=== PATIENT | female | born 1955 | race Caucasian/White ===

== ENCOUNTER 2019-08-20 15:59 | Emergency (ER) | payer BC ==
[2019-08-20 16:13] VITALS: BP 158/94; TEMP 98.4; BMI 35.5
--- NOTE | 2019-08-20 17:56 | PDOC ---
Documentation entered by Latonia Eden SCRIBE, acting as scribe for Vicente Woods MD. Vicente Woods MD: This documentation has been prepared by the Meek hernandez Aiswarya, SCRIBE, under my direction and personally reviewed by me in its entirety. I confirm that the documentation accurately reflects all work, treatment, procedures, and medical decision making performed by me. History of Present Illness - General Chief Complaint: Wound Stated Complaint: LESION TO THE BACK Time Seen by Provider: 08/20/19 16:12 History Source: Patient Exam Limitations: No Limitations - History of Present Illness Initial Comments: 08/20/19 16:51 The patient is a 64 year old female, with no significant PMH, who presents to the emergency department with a mass to the upper back, unsure when it first began. Patient states she felt the mass pop and started oozing while taking a shower today. Mass is located to the right upper back that is hyperpigmented and fungated in nature with areas of dried blood. The patient states she made an appointment with a electronic gluing machine operator to be seen later this week. The patient denies any pain, tingling or numbness. Denies any chest pain, shortness of breath, headache and dizziness.Denies fever, chills, nausea, vomit, diarrhea and constipation. Allergies: Penicillin Past surgical history: None reported Social history: None reported PCP: None reported Past History - Past Medical History Allergies/Adverse Reactions: Allergies Allergy/AdvReac Type Severity Reaction Status Date / Time Penicillins Allergy Verified 08/20/19 16:00 Home Medications: Ambulatory Orders NK [No Known Home Medication] 08/20/19 COPD: No Other medical history: DENIES - Psycho Social/Smoking Cessation Hx Smoking History: Never smoked Have you smoked in the past 12 months: No Information on smoking cessation initiated: No Hx Alcohol Use: No Review of Systems - Review of Systems Able to Perform ROS?: Yes Comments:: 08/20/19 16:56 A complete review of 10 out of 10 review of systems is taken and is negative apart from what is previously mentioned below and in the HPI. *Physical Exam - Vital Signs Last Vital Signs Temp Pulse Resp BP Pulse Ox 98.4 F 106 H 20 158/94 98 08/20/19 16:00 08/20/19 16:00 08/20/19 16:00 08/20/19 16:00 08/20/19 16:00 - Physical Exam Comments: 08/20/19 16:57 Vitals: Triage Vital signs reviewed General Appearance: no acute distress, well nourished well developed, Chest Wall: Nontender Cardiac: Regular rate and rhythm, no murmurs, no rubs, no gallops. Lungs: Clear to auscultation bilateral, good air movement bilaterally, Extremities: Full range of motion to all extremities, no cyanosis, clubbing, or edema Skin:+right upper back there is a large hyperpigmented fungated mass with areas of dried blood Neuro: AOX3; Cranial Nerves 2-12 grossly c intact, Strength intact to all extremities, Sensation intact to all extremities. Psych: normal mood, normal affect Medical Decision Making - Medical Decision Making 08/20/19 17:53 Case discussed with patient's electronic gluing machine operator has outpatient follow-up for next Tuesday, she will call in the morning to try to arrange follow-up for biopsy tomorrow or Tuesday. Case also discussed with Dr. Santillan hematology oncology's office will call the patient to start oncologic work-up for patient early next week pending biopsy results All findings and significance of mass concerning for cancer discussed with patient at length. Findings, need for follow-up and strict return instructions discussed with patient. Discharge - Discharge Information Problems reviewed: Yes Clinical Impression/Diagnosis: Mass Condition: Stable Disposition: HOME - Admission No - Follow up/Referral Referrals: Tommy Santillan MD [Staff Physician] - - Patient Discharge Instructions Additional Instructions: Tomorrow morning call Dr. Gillette's office explained that you were seen in the emergency department have most likely a cancerous mass on your back and were told to try to be seen tomorrow or Tuesday prior to your appointment next week. Tomorrow call for an appointment with Dr. Santillan oncology for an appointment next week. Return to ED for any concerns. - Post Discharge Activity
[2019-08-20 18:15] VITALS: PULSE 87
== END 2019-08-20 18:16 | disposition home or self-care (01) ==
LOC: FER 15:59
DX: R22.2 Localized swelling, mass and lump, trunk (principal); Z88.0 Allergy status to penicillin
CPT/HCPCS: 99283-25